=== PATIENT | female | born 2005 | race Caucasian/White ===

== ENCOUNTER 2025-03-15 19:29 | Emergency (ER) | payer MEDICAID ==
[~2025-03-15] VITALS: Ht 160 cm; Wt 71.0 kg
[2025-03-15 19:56] VITALS: BP 111/76; PULSE 98; RESP 15; O2SAT 98
--- NOTE | 2025-03-15 20:14 | Physician Documentation ---
History of Present Illness ~ Chief Complaint: Urinary Symptoms Stated Complaint: UTI SYMPTOMS Time Seen by MD: 20:10 HPI Patient presents to the emergency room with chief complaint of dysuria. She reports that she has history of urinary tract infections in his a proximally 4 hours prior to arrival felt some burning therefore came in to be evaluated. Denies any fevers or abdominal pain or back pain. Medication Reconciliation Allergies: Coded Allergies: No Known Allergies (Unverified , 03/15/25) Review of Systems ROS All review of systems negative except as per HPI Physical Exam Vital Signs: Temperature: 96.3, Source: Temporal, Heart Rate: 98, Respiratory Rate: 15, BP: 111/76, Pulse Oximetry: 98, Weight: 71.000 Physical Exam General: Patient is awake, alert, oriented x4 in no acute distress and well appearing.~ Head: Normocephalic and atraumatic. Eyes: Conjunctival normal. EOMI. PERRL. ENT: Mucous membranes moist. Neck: Supple, trachea is midline. Chest: Clear to auscultation bilaterally without rales, rhonchi, or wheezes. There is no accessory muscle use or retractions. Cardiac: RRR without murmurs, gallops, or rubs. Abd: Soft, nondistended, nontender, with normoactive bowel sounds. No guarding, rebound, or rigidity. Progress Results/Orders Results/Orders Orders - AWAIS CHAMBERS MD Cult Urine + [place] [address] (03/15/25 20:49) Completed Orders - AWAIS CHAMBERS MD Ua W/Microscopic, Cult If Ind (03/15/25 20:02) Vital Signs 03/15/25 19:56 Temp 96.3 Pulse 98 Resp 15 B/P (MAP) 111/76 Pulse Ox 98 Laboratory Tests Test 03/15/25 20:02 Urine Specimen Description Non-specified Urine Color Brown Urine Clarity Cloudy Urine pH 8.0 Urine Specific [place] 1.015 Urine Protein 30 H Urine Glucose (UA) Negative Urine Ketones Negative Urine Occult Blood Large H Urine Nitrite Positive H Urine Bilirubin Negative Urine Urobilinogen 0.2 Urine Leukocyte Esterase Moderate H Urine RBC 50-100 Urine WBC 5-10 H Urine WBC Clumps Moderate Urine Squamous Epithelial Cells Few Urine Bacteria 2+ Urine Culture Indicated Indicated Volume Urine Centrifuged 10 ml Urine Comment Medical Decision Making Additional information obtaine: N/A Findings Patient presented to the emergency room for evaluation of dysuria. Urinalysis is positive for urinary tract infection and we will treat her as such. Urinary Diff Dx:Considerations: Include: AAA, , Aortic dissection, Appendicitis, Bowel obstruction, Cholelithiasis, Choleangitis, DJD, Ectopic , Hepatitis, HNP, Impaction, Intrauterine , Musculoskeletal pain, Ovarian torsion, Pancreatitis, PID, Post-Op complication, Pyelonephritis, Renal failure, Strain, Urinary Obstruction, Urolithiasis, Urinary retention, UTI, Vaginitis, Other Genital Diff Dx:Considerations: Include: -Complete, - Incomplete, -Inevitable, Ablortion-Missed, -Threatened, Abruptio placentae, Bartholin abscess, Bartholin cyst, Blood loss anemia, Constipation, Cervicitis, Dsymenorrhea, Ectopic , Foreign body, Hormonal, Hidradenitis suppurativa, Intrauterine , Menorrhagia, Menometrorrhagia, Menstrual bleeding, Myomatous uterus, Perianal abscess, Physiologic discharge, Pinworms, PID, Placenta previa, , Precipitous Hct, Trauma, UTI, Vaginitis(osis)-Atrophic, Vaginitis, Vaginitis(osis)-Bacterial, Vaginitis(osis)- Candidal, Vaginitis(osis)-Contact, Vaginitis(osis)-Herpes, Vaginitis(osis)- Trich., Other Departure Disposition: 01 HOME / SELF CARE / HOMELESS Impression: Primary Impression: Acute urinary tract infection Condition: Stable Discharge Instructions: Urinary Tract Infection, Adult Referrals: NO PRIMARY CARE PROVIDER (PCP) Prescriptions Cephalexin*Monohydrate* (Keflex*) 500 Mg Capsule 1 CAP PO Q12H for 10 Days, #20 CAP Prov: AWAIS CHAMBERS MD 03/15/25 Signature Scribe Signature: No scribe Attestation: The note accurately reflects work and decisions made by me.Awais Chambers MD 03/15/25 20:54 AWAIS CHAMBERS MD Mar 15, 2025 20:14
[2025-03-15 20:32] LABS: LEUKOCYTE ESTERASE ,URINE MODERATE (Neg); NITRITES, URINE POSITIVE (Neg); OCCULT BLOOD,URINE LARGE (Neg)
[2025-03-15 20:44] LABS: UA COLLECTION TYPE NON-SPECIFIED
[2025-03-15 20:48] LABS: SQUAMOUS EPITHELIAL CELL,UR FEW /LPF (FEW)
[2025-03-15 20:49] LABS: WBC CLUMPS,URINE MODERATE /HPF (NEGATIVE)
[2025-03-15] MEDS ORDERED: CEPH-585 PO (20:53)
[2025-03-15 20:55] VITALS: TEMP 96.3
== END 2025-03-15 21:03 | disposition home or self-care (01) ==
LOC: ER 19:30
DX: N39.0 Urinary tract infection, site not specified (principal); Z87.440 Personal history of urinary (tract) infections
CPT/HCPCS: 81001; 87088; 87186; 99283